=== PATIENT | female | born 1955 | race Caucasian/White ===

== ENCOUNTER → 2019-09-27 15:59 | Outpatient (CLI) | payer OTHER, SELFPAY ==
--- NOTE | 2019-09-27 16:01 | DI.RAD.S_ITS ---
PROCEDURE: XR CHEST 2V INDICATIONS: pneumonia TECHNIQUE: 2 views of the chest were acquired. COMPARISON: [facility], , CHEST 1 VIEW, 11/30/2017, 17:49. FINDINGS: Surgical changes and devices: Surgical clips in stomach. Lungs and pleura: Lungs are clear. No pleural effusions or pneumothorax. Mediastinum: Mediastinal contours are normal. Heart size is normal. Bones and chest wall: No suspicious bony abnormalities. Soft tissues appear unremarkable. IMPRESSION: No acute cardiopulmonary disease. Dictated by: Gabriella Kruger M.D. on 09/27/2019 at 17:50 Approved by: Gabriella Kruger M.D. on 09/27/2019 at 17:50
== END ==
PROVIDERS: Visit Provider Physician Assistant
DX: R05 Cough (principal)
CPT/HCPCS: 71046

== ENCOUNTER 2020-10-22 21:20 | Emergency (ER) | payer OTHER, SELFPAY ==
--- NOTE | 2020-10-22 21:22 | DI.RAD.S_ITS ---
PROCEDURE: XR CHEST 1V INDICATIONS: chest pain TECHNIQUE: One view of the chest was acquired. COMPARISON: [facility], CR, XR CHEST 2V, 09/27/2019, 15:57. FINDINGS: Surgical changes and devices: Multiple surgical clips are redemonstrated in the region of the gastroesophageal junction. Lungs and pleura: There is a linear opacity in the left lung base peripherally likely representing atelectasis. Lungs are otherwise clear. No pleural effusions or pneumothorax. Mediastinum: Mediastinal contours appear normal. Heart size is normal. Bones and chest wall: No suspicious bony lesions. Overlying soft tissues appear unremarkable. IMPRESSION: 1. Probable atelectasis in the left lung base. No definite acute cardiopulmonary disease. Dictated by: Jovany Kumar M.D. on 10/22/2020 at 22:03 Approved by: Jovany Kumar M.D. on 10/22/2020 at 22:06
[2020-10-22 21:25] VITALS: BP 98/51; PULSE 55; RESP 16; TEMP 36.4; O2SAT 99; BMI 26.2
[2020-10-22 22:00] LABS: COVID19 -Nasal RAPID Negative (Negative)
--- NOTE | 2020-10-22 22:02 | ED_ITS ---
HPI - General Adult General Chief complaint: Syncope Stated complaint: syncope Time Seen by Provider: 10/22/20 22:02 Source: patient Mode of arrival: EMS Limitations: no limitations History of Present Illness HPI narrative: 65-year-old female here for evaluation of a syncopal episode. Patient states that she was at her normal state health. Was lying on her bed talking to in individual. States she stood up to go to the restroom and became very lightheaded. She states that she was able to make it to the bathroom and while she was there became even more lightheaded. Had to call her son who came to help her back into the room. Her son states that she did pass out. EMS was called. There was reported episodes of hypotension. Patient states that she had an episode like this happen in the past. It occurred in the same situation where she was lying down and stood up. Had the same symptoms with lighthea dedness. At that episode she ended up fracturing her ankle. She states that she was seen in the emergency department and discharged home and reported that she felt much better after approximately 24 hours. She has not followed up with her primary doctor regarding these. She is on multiple medications for various issues and her son states that she has even started some new medications although he is unsure what exactly they were. Prior to the episode today she denied any chest pain or shortness of breath or palpitations. No headache. No ringing in her ears. There were no injuries from this event. Related Data Home Medications Medication Instructions Recorded Confirmed VITAMIN D (Vitamin D3) 1,000 u PO QDAY #0 11/30/17 09/03/20 amlodipine [Norvasc] 5 mg PO QDAY #0 11/30/17 09/03/20 aspirin 81 mg PO QDAY #0 11/30/17 09/03/20 atorvastatin [Lipitor] 40 mg PO QPM #0 11/30/17 09/03/20 cyanocobalamin (vitamin B-12) 1,000 mcg IM QWEEKWE #0 11/30/17 09/03/20 cyclobenzaprine 10 mg PO HS #0 11/30/17 09/03/20 doxycycline hyclate 100 mg PO QDAY #0 11/30/17 09/03/20 fexofenadine 180 mg PO QDAY #0 11/30/17 09/03/20 gabapentin [Neurontin] 600 mg PO QPM #0 11/30/17 09/03/20 losartan 50 mg PO BID #0 11/30/17 09/03/20 melatonin 3 mg PO HS #0 11/30/17 09/03/20 pantoprazole [Protonix] 40 mg PO QDAY #0 11/30/17 09/03/20 venlafaxine 150 mg PO QDAY #0 11/30/17 09/03/20 venlafaxine [Effexor XR] 75 mg PO QDAY #0 11/30/17 09/03/20 Previous Rx's Medication Instructions Recorded nitroglycerin [Nitrostat] 0.4 mg SUBLINGUAL SEE INSTRUCTIONS 12/02/17 PRN #25 tab albuterol sulfate 90 mcg/actuation 2 puff INHALATION Q4-6H PRN #8.5 09/27/19 aerosol inhaler gram azithromycin 250 mg tablet See Rx Instructions PO .COMPLEX #6 09/27/19 tab benzonatate 100 mg capsule 100 mg PO BID PRN #14 cap 09/27/19 prednisone 20 mg tablet 20 mg PO DAILY #5 tab 09/27/19 potassium chloride 40 meq PO DAILY #2 tab 10/23/20 Allergies Allergy/AdvReac Type Severity Reaction Status Date / Time codeine [CODEINE] Allergy Intermediate CHEST PAIN Verified 09/03/20 14:22 lisinopril [From ZESTRIL] AdvReac Unknown COUGH Verified 09/03/20 14:22 Review of Systems Constitutional Constitutional: Denies fever(s) and Denies headache(s) Eyes Eyes: Denies blurry vision ENT Ears, Nose, Mouth, and Throat: Denies vertigo, Reports dizziness, Denies headache(s) and Reports disequilibrium Cardiovascular Cardiovascular: Denies chest pain and Denies dyspnea Respiratory Respiratory: Denies dyspnea Gastrointestinal Gastrointestinal: Denies abdominal pain, Reports nausea and Denies vomiting Genitourinary Genitourinary: Denies dysuria Genitourinary: Denies dysuria and Denies vaginal discharge Musculoskeletal Musculoskeletal: Denies arthralgias, Denies myalgias and Reports tingling Integumentary/Breasts Skin/Breast: Denies lesions and Denies rash Neurologic Neurologic: Denies vertigo, Reports dizziness, Denies headache(s), Denies convulsions, Reports tingling and Reports disequilibrium Hematologic/Lymphatic Hematologic/Lymphatic: Denies easy bleeding and Denies easy bruising Allergic/Immunologic Allergic/Immunologic: Denies urticaria Patient History Medical History Hypertension Low back pain PTSD (post-traumatic stress disorder) Social History Smoking Status: Never smoker Smoking Status: Never smoker Exam Initial Vital Signs Initial Vital Signs: Vital Signs Temperature 97.6 F 10/22/20 21:25 Pulse Rate 55 L 10/22/20 21:25 Respiratory Rate 16 10/22/20 21:25 Blood Pressure 98/51 L 10/22/20 21:25 Pulse Oximetry 99 10/22/20 21:25 Const General: cooperative, comfortable and well developed Limitations: mental status not altered HENMT Head: normal to inspection and normocephalic Resp Effort & Inspection: normal respiratory effort Auscultation: clear to auscultation bilaterally Cardio Rate: bradycardic Rhythm: regular rhythm GI Inspection: non-distended Palpation: soft Skin Lesions: no lesions Rashes: no rashes Neuro General: patient alert and patient awake Cognition: normal cognition Speech: speech normal Sensory Exam: no sensory deficits noted Extrem General: normal to inspection and capillary refill normal Psych Appearance: grossly normal and well kempt Scores GCS Guttenberg coma scale eye opening: Spontaneous Mohan coma scale verbal response: Orientated Mohan coma scale motor response: Obey commands Mohan coma scale total score: 15 Course Orders Ordered: ED Orders 10/22/20 21:44 COVID19 Stat 10/22/20 22:07 Complete Blood Count AUTO DIFF Stat Comprehensive Metabolic Panel Stat Lipase Stat Magnesium Stat Partial Thromboplastin Time Stat Prothrombin Time INR Stat Troponin & CK Cardiac Panel Stat Discontinued Medications Potassium Chloride 40 meq/ (Sodium Chloride) 520 mls @ 130 mls/hr IV NOW ONE Stop: 10/23/20 02:45 Last Infusion: 10/23/20 02:18 Dose: 0 mls/hr Documented by: ASHLI Cosigned by: JANE Infusion: 10/23/20 01:48 Dose: 100 mls/hr Documented by: ASHLI Cosigned by: AMBER Admin: 10/23/20 00:02 Dose: 130 mls/hr Documented by: MISTY Cosigned by: ERICA Sodium Chloride (Normal Saline 0.9%) 1,000 mls @ 1,000 mls/hr IV BOLUS ONE Stop: 10/23/20 00:58 Last Infusion: 10/23/20 01:20 Dose: 0 mls/hr Documented by: Admin: 10/23/20 00:03 Dose: 1,000 mls/hr Documented by: MISTY Potassium Chloride (Potassium Chloride 20 Meq/15 Ml Udc) 40 meq PO NOW ONE Stop: 10/22/20 22:47 Last Admin: 10/22/20 23:02 Dose: 40 meq Documented by: MISTY Vital Signs Vital signs: Vital Signs - 8 hr 10/22/20 23:08 10/22/20 23:15 10/22/20 23:30 Pulse Rate 60 63 63 Respiratory Rate 15 16 14 Blood Pressure 96/55 L 91/49 L Pulse Oximetry 97 98 96 10/22/20 23:45 10/23/20 00:00 10/23/20 00:11 Pulse Rate 63 61 62 Respiratory Rate 14 12 24 Blood Pressure Pulse Oximetry 93 93 100 10/23/20 00:12 10/23/20 00:15 10/23/20 00:30 Pulse Rate 63 63 63 Respiratory Rate 15 23 15 Blood Pressure 118/58 L 111/54 L 119/57 L Pulse Oximetry 99 98 100 10/23/20 00:45 10/23/20 01:00 10/23/20 01:15 Pulse Rate 62 63 64 Respiratory Rate 19 15 19 Blood Pressure 114/56 L 113/66 112/64 Pulse Oximetry 99 97 99 10/23/20 01:34 10/23/20 01:45 10/23/20 02:00 Pulse Rate 84 67 69 Respiratory Rate 31 H 15 13 Blood Pressure 114/57 L 89/51 L Pulse Oximetry 74 L 98 93 10/23/20 02:15 10/23/20 02:30 Pulse Rate 68 67 Respiratory Rate 17 15 Blood Pressure 108/53 L 101/50 L Pulse Oximetry 96 99 Medical Decision Making Lab Data Lab results reviewed: Yes I reviewed the patient's lab results. Result diagrams: 10/22/20 22:07 10/22/20 22:07 Labs: Lab Results 10/22/20 10/22/20 10/22/20 Range/Units 21:44 22:07 22:07 WBC 5.8 (4.5-11.0) X10^3/uL RBC 4.25 (4.0-5.2) X10^6/uL Hgb 10.4 L (12.0-16.0) g/dL Hct 32.9 L (36-46) % MCV 77.4 L (80-100) fL MCH 24.6 L (26-34) PG MCHC 31.8 (30-36) % RDW 15.5 H (11.6-14.8) % Plt Count 170 (150-400) X10^3/uL Neut % (Auto) 63.6 (50-75) % Lymph % (Auto) 24.7 L (25-40) % [place] % (Auto) 7.4 (3-14) % Eos % (Auto) 3.3 (2-4) % Baso % (Auto) 1.0 (0-2) % Neut # (Auto) 3700 (9880-1550) /uL Lymph # (Auto) 1400 (1528-3209) /uL [place] # (Auto) 400 (0-900) /uL Eos # (Auto) 200 (0-450) /uL Baso # (Auto) 100 (0-100) /uL PT 11.5 (10.1-12.7) SECONDS INR 1.0 (0.9-1.3) APTT 27 (26.4-36.2) SECONDS Sodium (137-145) mmol/L Potassium (3.4-5.1) mmol/L Chloride (98-107) mmol/L Carbon Dioxide (22-32) mmol/L BUN (7-17) mg/dL Creatinine (0.52-1.04) mg/dL Estimated GFR (>60) mL/min BUN/Creatinine Ratio (6-22) Glucose (80-110) mg/dL Calcium (8.4-10.2) mg/dL Magnesium (1.6-2.3) mg/dL Total Bilirubin (0.2-1.3) mg/dL AST (14-36) IU/L ALT (<35) IU/L Alkaline Phosphatase (38-126) U/L Total Creatine Kinase (30-135) U/L CK-MB (CK-2) CK-MB (CK-2) Rel Index Troponin I (0.01-0.034) ng/mL Total Protein (6.3-8.2) g/dL Albumin (3.5-5.0) g/dL Globulin (1.7-4.1) g/dL Albumin/Globulin Ratio (1.0-2.8) Lipase (23-300) U/L SARS-CoV-2 (PCR) Negative (Negative) 10/22/20 Range/Units 22:07 WBC (4.5-11.0) X10^3/uL RBC (4.0-5.2) X10^6/uL Hgb (12.0-16.0) g/dL Hct (36-46) % MCV (80-100) fL MCH (26-34) PG MCHC (30-36) % RDW (11.6-14.8) % Plt Count (150-400) X10^3/uL Neut % (Auto) (50-75) % Lymph % (Auto) (25-40) % [place] % (Auto) (3-14) % Eos % (Auto) (2-4) % Baso % (Auto) (0-2) % Neut # (Auto) (0914-1082) /uL Lymph # (Auto) (1812-0989) /uL [place] # (Auto) (0-900) /uL Eos # (Auto) (0-450) /uL Baso # (Auto) (0-100) /uL PT (10.1-12.7) SECONDS INR (0.9-1.3) APTT (26.4-36.2) SECONDS Sodium 136 L (137-145) mmol/L Potassium 2.7 L* (3.4-5.1) mmol/L Chloride 106 (98-107) mmol/L Carbon Dioxide 26 (22-32) mmol/L BUN 18 H (7-17) mg/dL Creatinine 1.05 H (0.52-1.04) mg/dL Estimated GFR 52.8 L (>60) mL/min BUN/Creatinine Ratio 17.1 (6-22) Glucose 114 H (80-110) mg/dL Calcium 8.3 L (8.4-10.2) mg/dL Magnesium 2.0 (1.6-2.3) mg/dL Total Bilirubin 0.4 (0.2-1.3) mg/dL AST 30 (14-36) IU/L ALT 16 (<35) IU/L Alkaline Phosphatase 82 (38-126) U/L Total Creatine Kinase 39 (30-135) U/L CK-MB (CK-2) TNP CK-MB (CK-2) Rel Index TNP Troponin I < 0.012 (0.01-0.034) ng/mL Total Protein 6.1 L (6.3-8.2) g/dL Albumin 3.4 L (3.5-5.0) g/dL Globulin 2.7 (1.7-4.1) g/dL Albumin/Globulin Ratio 1.3 (1.0-2.8) Lipase 140 (23-300) U/L SARS-CoV-2 (PCR) (Negative) ECG Data Attestation: I personally reviewed and interpreted this ECG as follows: Prior ECG tracings: not available for review Interpretation: Sinus bradycardia Ventricular rate of 56 Normal QRS Normal axis QTC [address] T wave changes MDM Narrative Medical decision making narrative: Patient not orthostatic although her blood pressure is somewhat borderline low. She is hypokalemic. This was replaced here in the emergency department. She was having some problems tolerating the IV potassium that was ordered so it was stopped after approximately half of the 40 mg infusion. She was given a prescription to take more potassium tomorrow. It appeared that she did have a syncopal episode however it did not appear to be seizure-like activity. Low suspicion for CVA. Low suspicion for TIA. Did occur after she stood up from lying down. Could very well be vasovagal. Blood sugars unremarkable. Electrolytes with a potassium are unremarkable. I have a high suspicion that her symptoms are medication related. She is on multiple medications that are sedating to include hydroxyzine, Flexeril, tramadol, gabapentin, and others. She did state that the episode today occurred a short time after taking these medications as well. Plan will be is for her to stop some of the sedating medications such as the Flexeril in the tramadol. I feel patient could be safely discharged from the hospital. She is feeling much better. She ambulated to the bathroom. She is going to contact her primary doctor regarding the rest of her medications. She was given strict return prec autions. She expressed understanding and agreement. Discharge Plan Departure Patient Disposition: Home Clinical Impression: Syncope, Hypokalemia Instructions: DI for Syncope in Adults (Fainting), DI for Hypokalemia Activity Restrictions/Additional Instructions: Your workup in the emergency department was reassuring. Unfortunately I do not have an exact cause of your fainting spells however I have a high suspicion that it is related to your medications. I recommend that you make some changes to your medicine. Recommend that you stop the amlodipine. Continue to take the losartan 2 times a day as you are already doing. Be sure to check your blood pressures at home while we make these changes. I also recommend that you stop the cyclobenzaprine and tramadol. Contact your primary provider for follow-up. Return to the emergency department for any new or worsening symptoms Prescriptions: New potassium chloride 20 mEq tablet extended release 40 meq PO DAILY Qty: 2 RF: 0 No Action azithromycin 250 mg tablet See Rx Instructions PO .COMPLEX Qty: 6 RF: 0 prednisone 20 mg tablet 20 mg PO DAILY Qty: 5 RF: 0 albuterol sulfate 90 mcg/actuation HFA aerosol inhaler 2 puff INHALATION Q4-6H PRN (Reason: bronchospasm) Qty: 8.5 RF: 0 benzonatate [Tessalon Perles] 100 mg capsule 100 mg PO BID PRN (Reason: cough) Qty: 14 RF: 0 venlafaxine [Effexor XR] 75 MG capsule,extended release 24hr 75 mg PO QDAY Qty: 0 RF: 0 venlafaxine 150 MG capsule,extended release 24hr 150 mg PO QDAY Qty: 0 RF: 0 doxycycline hyclate 100 MG capsule 100 mg PO QDAY Qty: 0 RF: 0 cyanocobalamin (vitamin B-12) Vitamin B-12 solution 1,000 mcg IM QWEEKWE Qty: 0 RF: 0 VITAMIN D (Vitamin D3) 1,000 u PO QDAY Qty: 0 RF: 0 losartan 50 MG tablet 50 mg PO BID Qty: 0 RF: 0 cyclobenzaprine 10 MG tablet 10 mg PO HS Qty: 0 RF: 0 fexofenadine 180 MG tablet 180 mg PO QDAY Qty: 0 RF: 0 pantoprazole [Protonix] [address] for susp in packet 40 mg PO QDAY Qty: 0 RF: 0 atorvastatin [Lipitor] 40 MG tablet 40 mg PO QPM Qty: 0 RF: 0 amlodipine [Norvasc] 5 MG tablet 5 mg PO QDAY Qty: 0 RF: 0 aspirin 81 MG tablet,delayed release (DR/EC) 81 mg PO QDAY Qty: 0 RF: 0 gabapentin [Neurontin] 300 MG capsule 600 mg PO QPM Qty: 0 RF: 0 melatonin 3 MG tablet 3 mg PO HS Qty: 0 RF: 0 nitroglycerin [Nitrostat] 0.4 MG tablet, sublingual 0.4 mg Sublingual SEE INSTRUCTIONS PRNQty: 25 RF: 0 Referrals: Meghan Iqbal MD [Primary Care Provider] -
[2020-10-22 22:19] LABS: Add Manual Diff / Slide Review NO; Basophils Absolute Auto 100 /uL (0-100); Eosinophils Absolute Auto 200 /uL (0-450); Eosinophils Percent Auto 3.3 % (2-4); Hematocrit 32.9 % (36-46); Hemoglobin 10.4 g/dL (12.0-16.0); Lymphocytes Absolute Auto 1400 /uL (1100-4500); Lymphocytes Percent Auto 24.7 % (25-40); Mean Corpuscular HGB Conc 31.8 % (30-36); Mean Corpuscular Hemoglobin 24.6 PG (26-34); Mean Corpuscular Volume 77.4 fL (80-100); Monocytes Absolute Auto 400 /uL (0-900); Monocytes Percent Auto 7.4 % (3-14); Neutrophils Absolute Auto 3700 /uL (1500-7000); Neutrophils Percent Auto 63.6 % (50-75); Platelet Count 170 X10^3/uL (150-400); Red Blood Cell Count 4.25 X10^6/uL (4.0-5.2); Red Cell Distribution Width 15.5 % (11.6-14.8); White Blood Cell Count 5.8 X10^3/uL (4.5-11.0)
[2020-10-22 22:20] LABS: Prothrombin Time 11.5 SECONDS (10.1-12.7)
[2020-10-22 22:23] LABS: PTT Partial Thromboplastin Tim 27 SECONDS (26.4-36.2)
[2020-10-22 22:27] LABS: Alanine Aminotransferase 16 IU/L (<35); Albumin 3.4 g/dL (3.5-5.0); Albumin Globulin Ratio 1.3 (1.0-2.8); Alkaline Phosphatase 82 U/L (38-126); Aspartate Aminotransferase 30 IU/L (14-36); BUN Creatinine Ratio 17.1 (6-22); Bilirubin Total 0.4 mg/dL (0.2-1.3); Blood Urea Nitrogen 18 mg/dL (7-17); Calcium 8.3 mg/dL (8.4-10.2); Carbon Dioxide 26 mmol/L (22-32); Chloride 106 mmol/L (98-107); Creatine Kinase 39 U/L (30-135); Estimated Glomerular Filt Rate 52.8 mL/min (>60); Globulin 2.7 g/dL (1.7-4.1); Glucose 114 mg/dL (80-110); HEMOLYSIS < 15 (0-50); Lipase 140 U/L (23-300); Sodium 136 mmol/L (137-145); Total Protein 6.1 g/dL (6.3-8.2)
[2020-10-22 22:31] LABS: Potassium 2.7 mmol/L (3.4-5.1)
[2020-10-22 22:37] VITALS: BP 108/53; BP 112/59; BP 97/54; PULSE 56; PULSE 58; PULSE 59
[2020-10-22 22:38] LABS: Troponin I < 0.012 ng/mL (0.01-0.034)
[2020-10-22] MEDS: POTASSIUM CHLORIDE 20 MEQ/15 ML UDC 40 MEQ PO (23:02)
[2020-10-22 23:08] VITALS: BP 96/55; PULSE 60; RESP 15; O2SAT 97
[2020-10-22 23:15] VITALS: BP 91/49; PULSE 63; RESP 16; O2SAT 98
[2020-10-22 23:30] VITALS: PULSE 63; RESP 14; O2SAT 96
[2020-10-22 23:45] VITALS: PULSE 63; RESP 14; O2SAT 93
[2020-10-23] VITALS (13 sets, daily range): BP systolic 89–119; BP diastolic 50–66; PULSE 61–84; RESP 12–31; O2SAT 74–100
[2020-10-23] MEDS: POTASSIUM CHLORIDE 40 MEQ in SODIUM CHLORIDE 0.9% 500 ML 130 ML IV (00:02)
[2020-10-23] MEDS: SODIUM CHLORIDE 0.9% 1,000 ML 1000 ML IV (00:03)
== END 2020-10-23 02:47 | disposition home or self-care (01) ==
PROVIDERS: Emergency Provider Emergency Medicine
DX: R55 Syncope and collapse (principal); E87.6 Hypokalemia; R00.1 Bradycardia, unspecified; R42 Dizziness and giddiness; I10 Essential (primary) hypertension; F43.10 Post-traumatic stress disorder, unspecified
CPT/HCPCS: 36415; 71045; 80053; 82550; 83690; 83735; 84484; 85025; 85610; 85730; 87635; 93005; 96361; 96365; 96366; 99284; C9803; J3480

== ENCOUNTER → 2020-11-06 14:38 | Outpatient (CLI) | payer OTHER, SELFPAY ==
--- NOTE | 2020-11-06 14:40 | DI.RAD.S_ITS ---
PROCEDURE: XR LUMBAR SPINE 2-3V INDICATIONS: low back pain, r/o bony abnormality TECHNIQUE: 3 views of the lumbar spine were acquired. COMPARISON: None. FINDINGS: Bones: 5 [id number] vertebrae are present. There is normal bony alignment. No vertebral body compression fractures. No suspicious bony lesions. Soft tissues: Overlying bowel gas pattern is normal. No suspicious soft tissue calcifications. IMPRESSION: The degenerative disc disease along the lumbosacral spine is mild except at L5-S1 where it is moderate. Facet osteoarthritis becomes progressively more prominent from L3 through S1 and is moderately severe to severe at L5-S1. No trauma Dictated by: Kevin Wong M.D. on 11/06/2020 at 15:19 Approved by: Kevin Wong M.D. on 11/06/2020 at 15:22
== END ==
PROVIDERS: Referring Provider Physician Assistant; Visit Provider Physician Assistant
DX: M54.5 Low back pain (principal); M51.36 Other intervertebral disc degeneration, lumbar region; M51.37 Other intervertebral disc degeneration, lumbosacral region; M47.816 Spondylosis without myelopathy or radiculopathy, lumbar region; M47.817 Spondylosis without myelopathy or radiculopathy, lumbosacral region
CPT/HCPCS: 72100

== ENCOUNTER 2021-04-06 09:30 | Observation (INO) | payer MEDICARE, OTHER, SELFPAY ==
[2021-04-06] VITALS (14 sets, daily range): BP systolic 137–167; BP diastolic 68–76; PULSE 57–90; RESP 15–24; TEMP 36.6–36.9; O2SAT 93–100; BMI 28.4
--- NOTE | 2021-04-06 09:45 | ED.GENADULT ---
HPI - General Adult General Chief complaint: Syncope Stated complaint: Syncopal Time Seen by Provider: 04/06/21 09:30 History of Present Illness HPI narrative: 66-year-old woman with a history of hypertension, hyperlipidemia, recurrent episodes of near-syncope, diet-controlled diabetes, history of gastric bypass and a history of pancreatitis presents with a near syncopal episode again this morning. She reports having multiple near-syncope episodes over the last year typically associated with wave of dizziness and then with maintained awareness ending up on the floor. These episodes are not associated with pain, diaphoresis, dyspnea, tinnitus, headache or any vision changes. They are not necessarily positional but she has been found to be hypotensive with in medical evaluation occurs nina syncopal episode. With each of these episodes she does not describe any seizure-like activity, urinary incontinence or postictal phase. An episode a year ago was dramatic enough that she actually sustained an ankle fracture. She has had multiple episodes this week and 3 days ago was seen at [facility] Emergency Department for evaluation of the same. She had EKGs and blood work done, was told that she was slightly dehydrated and discharged home. When medics arrived today they found her to be hypotensive with a systolic blood pressure of 86 she was given 4 mg of Zofran and 500 cc of fluid and is feeling better. She states that she has not had any significant workup for this in at least the last year. She does not believe she has had an echocardiogram she has had no brain imaging, she has had cardiac stress test a number of years ago that apparently went well as she was not followed up with a heart catheterization. She notes that she has a fairly dramatic family history for early coronary disease with multiple male members dying of heart attacks after multiple heart attacks, open heart surgery and stents while in their 30s. She denies alcohol use, recreational drug use or change to prescription medications recently. Related Data Home Medications Medication Instructions Recorded Confirmed VITAMIN D (Vitamin D3) 1,000 u PO QDAY #0 11/30/17 09/03/20 amlodipine [Norvasc] 5 mg PO QDAY #0 11/30/17 09/03/20 aspirin 81 mg PO QDAY #0 11/30/17 09/03/20 atorvastatin [Lipitor] 40 mg PO QPM #0 11/30/17 09/03/20 cyanocobalamin (vitamin B-12) 1,000 mcg IM QWEEKWE #0 11/30/17 09/03/20 cyclobenzaprine 10 mg PO HS #0 11/30/17 09/03/20 doxycycline hyclate 100 mg PO QDAY #0 11/30/17 09/03/20 fexofenadine 180 mg PO QDAY #0 11/30/17 09/03/20 gabapentin [Neurontin] 600 mg PO QPM #0 11/30/17 09/03/20 losartan 50 mg PO BID #0 11/30/17 09/03/20 melatonin 3 mg PO HS #0 11/30/17 09/03/20 pantoprazole [Protonix] 40 mg PO QDAY #0 11/30/17 09/03/20 venlafaxine 150 mg PO QDAY #0 11/30/17 09/03/20 venlafaxine [Effexor XR] 75 mg PO QDAY #0 11/30/17 09/03/20 Previous Rx's Medication Instructions Recorded nitroglycerin [Nitrostat] 0.4 mg SUBLINGUAL SEE INSTRUCTIONS 12/02/17 PRN #25 tab albuterol sulfate 90 mcg/actuation 2 puff INHALATION Q4-6H PRN #8.5 09/27/19 aerosol inhaler gram azithromycin 250 mg tablet See Rx Instructions PO .COMPLEX #6 09/27/19 tab benzonatate 100 mg capsule 100 mg PO BID PRN #14 cap 09/27/19 prednisone 20 mg tablet 20 mg PO DAILY #5 tab 09/27/19 potassium chloride 40 meq PO DAILY #2 tab 10/23/20 Allergies Allergy/AdvReac Type Severity Reaction Status Date / Time codeine [CODEINE] Allergy Intermediate CHEST PAIN Verified 04/06/21 09:52 lisinopril [From ZESTRIL] AdvReac Unknown COUGH Verified 04/06/21 09:52 Review of Systems Review of Systems Narrative: Pertinent positive and negative findings as per HPI Remainder of review of systems is otherwise unremarkable for Constitutional: Fevers, chills, weakness ENT: No sore throat, neck pain, ear pain CV: Chest pain, palpitations, dyspnea on exertion Respiratory: Cough, wheeze, dyspnea GI: Nausea, vomiting, diarrhea, change in bowel habits, black or bloody stools : Dysuria, hematuria, flank pain MS: Muscle weakness, numbness, joint swelling or warmth Skin: Rashes, nonhealing lesions Endocrine: Fatigue, heat or cold intolerance, very dry skin, or significant changes to weight Patient History Medical History (Updated 04/06/21 @ 09:55 by Merlene Young MD) Diet-controlled diabetes mellitus Hyperlipidemia Hypertension Low back pain PTSD (post-traumatic stress disorder) Recurrent syncope Family History (Updated 04/06/21 @ 09:48 by Merlene Young MD) Brother FH: heart attack Brother FH: heart attack Father FH: heart attack Mother FH: heart attack Brother FH: heart attack Daughter FH: heart attack Grandfather FH: heart attack Social History Smoking Status: Never smoker Smoking Status: Never smoker Exam Narrative Exam Narrative: General: Healthy appearing, in no acute distress. Able to give a complete and coherent history. Well-nourished well-developed HEENT: Moist mucous membranes, normal sclera with reactive pupils, Neck: No JVD, supple Respiratory: Lungs are clear to auscultation, no wheezing no rales no rhonchi. Full and symmetrical air movement Cardiac: Regular rate and rhythm no murmurs no bruits Abdomen: Soft, nontender, good bowel tones, no flank pain Skin: Warm and dry, no rashes Neurologic: Grossly neurologically intact with no obvious asymmetries or abnormalities Extremities: No trauma, well perfused Psych: Cooperative, appropriate insight and affect Discharge Plan Departure Prescriptions: No Action azithromycin 250 mg tablet See Rx Instructions PO .COMPLEX Qty: 6 RF: 0 prednisone 20 mg tablet 20 mg PO DAILY Qty: 5 RF: 0 albuterol sulfate 90 mcg/actuation HFA aerosol inhaler 2 puff INHALATION Q4-6H PRN (Reason: bronchospasm) Qty: 8.5 RF: 0 benzonatate [Tessalon Perles] 100 mg capsule 100 mg PO BID PRN (Reason: cough) Qty: 14 RF: 0 venlafaxine [Effexor XR] 75 MG capsule,extended release 24hr 75 mg PO QDAY Qty: 0 RF: 0 venlafaxine 150 MG capsule,extended release 24hr 150 mg PO QDAY Qty: 0 RF: 0 doxycycline hyclate 100 MG capsule 100 mg PO QDAY Qty: 0 RF: 0 cyanocobalamin (vitamin B-12) Vitamin B-12 solution 1,000 mcg IM QWEEKWE Qty: 0 RF: 0 VITAMIN D (Vitamin D3) 1,000 u PO QDAY Qty: 0 RF: 0 losartan 50 MG tablet 50 mg PO BID Qty: 0 RF: 0 cyclobenzaprine 10 MG tablet 10 mg PO HS Qty: 0 RF: 0 fexofenadine 180 MG tablet 180 mg PO QDAY Qty: 0 RF: 0 pantoprazole [Protonix] [address] for susp in packet 40 mg PO QDAY Qty: 0 RF: 0 atorvastatin [Lipitor] 40 MG tablet 40 mg PO QPM Qty: 0 RF: 0 amlodipine [Norvasc] 5 MG tablet 5 mg PO QDAY Qty: 0 RF: 0 aspirin 81 MG tablet,delayed release (DR/EC) 81 mg PO QDAY Qty: 0 RF: 0 gabapentin [Neurontin] 300 MG capsule 600 mg PO QPM Qty: 0 RF: 0 melatonin 3 MG tablet 3 mg PO HS Qty: 0 RF: 0 nitroglycerin [Nitrostat] 0.4 MG tablet, sublingual 0.4 mg Sublingual SEE INSTRUCTIONS PRNQty: 25 RF: 0 potassium chloride 20 mEq tablet extended release 40 meq PO DAILY Qty: 2 RF: 0
--- NOTE | 2021-04-06 09:57 | DI.CT.S_ITS ---
PROCEDURE: CT HEAD/BRAIN WO CON INDICATIONS: recurrent syncope TECHNIQUE: Noncontrast 4.5 mm thick angled axial sections acquired from the foramen magnum to the vertex, with coronal and sagittal reformats. For radiation dose reduction, the following was used: automated exposure control, adjustment of mA and/or kV according to patient size. COMPARISON: None. FINDINGS: Image quality: Excellent. CSF spaces: Basal cisterns are patent. No extra-axial fluid collections. The ventricles are symmetric in size and shape. Brain: No intracranial bleeds or masses. There is cerebral volume loss for age, with resultant ventricular and sulcal prominence. There are periventricular and deep white matter chronic small vessel ischemic changes. There is intracranial internal carotid artery atherosclerosis. Skull and face: Calvarium and visualized facial bones appear intact, without suspicious lesions. Sinuses: Visualized sinuses and mastoids are clear. IMPRESSION: No evidence acute stroke, hemorrhage, or mass. Dictated by: Sy Varela M.D. on 04/06/2021 at 9:20 Approved by: Sy Varela M.D. on 04/06/2021 at 9:20
--- NOTE | 2021-04-06 09:57 | DI.RAD.S_ITS ---
PROCEDURE: XR CHEST 1V INDICATIONS: syncope TECHNIQUE: One view of the chest was acquired. COMPARISON: [facility], CR, XR CHEST 1V, 10/22/2020, 21:27. FINDINGS: Surgical changes and devices: None. Lungs and pleura: Lungs are clear. No pleural effusions or pneumothorax. Mediastinum: Mediastinal contours appear normal. Heart size is normal. Bones and chest wall: No suspicious bony lesions. Overlying soft tissues appear unremarkable. IMPRESSION: No evidence acute pulmonary process. Dictated by: Sy Varela M.D. on 04/06/2021 at 9:17 Approved by: Sy Varela M.D. on 04/06/2021 at 9:19
[2021-04-06 10:08] LABS: Add Manual Diff / Slide Review NO; Basophils Absolute Auto 100 /uL (0-100); Basophils Percent Auto 1.4 % (0-2); Eosinophils Absolute Auto 200 /uL (0-450); Eosinophils Percent Auto 3.9 % (2-4); Hemoglobin 10.2 g/dL (12.0-16.0); Lymphocytes Absolute Auto 1400 /uL (1100-4500); Lymphocytes Percent Auto 30.2 % (25-40); Mean Corpuscular HGB Conc 31.8 % (30-36); Mean Corpuscular Hemoglobin 24.3 PG (26-34); Mean Corpuscular Volume 76.6 fL (80-100); Monocytes Absolute Auto 400 /uL (0-900); Monocytes Percent Auto 9.4 % (3-14); Neutrophils Absolute Auto 2500 /uL (1500-7000); Neutrophils Percent Auto 55.1 % (50-75); Platelet Count 209 X10^3/uL (150-400); Red Blood Cell Count 4.18 X10^6/uL (4.0-5.2); Red Cell Distribution Width 16.3 % (11.6-14.8); White Blood Cell Count 4.5 X10^3/uL (4.5-11.0)
[2021-04-06] MEDS: SODIUM CHLORIDE 0.9% 1,000 ML 150 ML IV (10:10)
[2021-04-06 11:11] LABS: D Dimer 258 ng/mL (<230)
[2021-04-06 11:14] LABS: Alanine Aminotransferase 18 IU/L (<35); Albumin 3.4 g/dL (3.5-5.0); Albumin Globulin Ratio 1.2 (1.0-2.8); Alkaline Phosphatase 91 U/L (38-126); Aspartate Aminotransferase 33 IU/L (14-36); BUN Creatinine Ratio 19.2 (6-22); Bilirubin Total 0.8 mg/dL (0.2-1.3); Blood Urea Nitrogen 14 mg/dL (7-17); Calcium 8.5 mg/dL (8.4-10.2); Carbon Dioxide 22 mmol/L (22-32); Chloride 111 mmol/L (98-107); Creatine Kinase 59 U/L (30-135); Estimated Glomerular Filt Rate > 60.0 mL/min (>60); Globulin 2.9 g/dL (1.7-4.1); Glucose 119 mg/dL (80-110); HEMOLYSIS < 15 (0-50); Magnesium 1.9 mg/dL (1.6-2.3); Potassium 3.5 mmol/L (3.4-5.1); Sodium 140 mmol/L (137-145); Total Protein 6.3 g/dL (6.3-8.2)
[2021-04-06 11:23] LABS: COVID19 - ADMIT (NP swab/PCR) Negative (Negative)
[2021-04-06 11:25] LABS: NT-proBNP (BNP-Adult 18+) 194 pg/mL (<125); Troponin I < 0.012 ng/mL (0.01-0.034)
--- NOTE | 2021-04-06 13:52 | P.HP_ITS ---
History of Present Illness History of Present Illness Date Patient Seen: 04/06/21 Time Patient Seen: 13:52 Chief complaint: Syncopal Narrative: This is a 66-year-old female with recurrent syncopal symptoms who is admitted for telemetry observation and stabilization. She has a history of hyperlipidemia, hypertension, peripheral neuropathy, gastric bypass surgery and GERD. She has a very strong family history of coronary artery disease in her mother, her father who at age 39, all 4 of her brothers, 2 of whom have already of MIs. She also has a family history in her mother of recurrent syncope, finally stabilized with pacemaker placement at a similar age. She has had episodes of feeling like passing out and actually passing out going back to 2017. On 1 of these episodes she fell and actually fractured her left ankle requiring surgery. She had a negative syncope evaluation with Dr. Thomas zamudio in 2017. This week she has had 2 episodes already, she was seen a few days ago at [facility] without any etiology found and then again today when she was driving to [employer] to go shopping she suddenly felt very tired. She pulled into the parking lot and was barely able to stand up. She eventually got in 1 of the scooter carts, called her son and then was picked up and brought to the hospital by her son or the paramedics. She did not pass out. She felt very nauseated but didn't have any Chest Pain or SOB. She describes that her blood pressure was 100/58 when they arrived, which is considerably lower than she normally is. She says she was told that her heart rate was slow but she does not recall the numbers. Her evaluation here so far has been negative including telemetry monitoring, EKG and brain CT. She was discussed with Cardiology who recommended a 24-48 hour period of observation in the hospital setting and if nothing is found to explain her symptoms then an event monitor placement as an outpatient. Patient History Medical History (Updated 04/06/21 @ 14:05 by Juliano Latif MD) Diet-controlled diabetes mellitus H/O fracture of ankle Hyperlipidemia Hypertension Low back pain PTSD (post-traumatic stress disorder) Recurrent syncope Surgical History (Updated 04/06/21 @ 14:05 by Juliano Latif MD) H/O carpal tunnel repair H/O cornea transplant H/O gastric bypass H/O: hysterectomy History of ankle surgery Family & Social History Family History (Updated 04/06/21 @ 14:06 by Juliano Latif MD) Brother FH: heart attack Brother FH: heart attack Father FH: heart attack Mother FH: heart attack Syncope and collapse Pacemaker Dementia Brother FH: heart attack Daughter FH: heart attack Grandfather FH: heart attack Social History: Her backup decision maker is her son who she lives with. She is a disabled SENIOR CLINICAL RESEARCH ASSOCIATE She uses THC occasionally for sleep and denies alcohol use. Safety & Behavioral: Feels Safe in Current Yes Environment Been Physically Hurt or No Threatened By a Person Tobacco & Substance use: Smoking Status Never smoker alcohol intake frequency 0-2 drinks per day Substance Use Type does not use Meds Home Medications and Allergies Home Medications Medication Instructions Recorded Confirmed Type amlodipine [Norvasc] 5 mg PO QDAY #0 11/30/17 04/06/21 History atorvastatin [Lipitor] 40 mg PO QPM #0 11/30/17 04/06/21 History cyanocobalamin (vitamin B-12) 1,000 mcg IM QWEEKWE #0 11/30/17 04/06/21 History cyclobenzaprine 10 mg PO HS #0 11/30/17 04/06/21 History doxycycline hyclate 100 mg PO QDAY #0 11/30/17 04/06/21 History gabapentin [Neurontin] 300 mg PO BID #0 11/30/17 04/06/21 History losartan 50 mg PO BID #0 11/30/17 04/06/21 History loratadine 10 mg PO DAILY 04/06/21 04/06/21 History sigalcbe-xiwiurj-ztav-lutein 1 tab PO DAILY 04/06/21 04/06/21 History [Centrum Silver Ultra Women's] ondansetron 4 mg PO TID PRN 04/06/21 04/06/21 History rabeprazole 20 mg PO DAILY 04/06/21 04/06/21 History Allergies Allergy/AdvReac Type Severity Reaction Status Date / Time codeine [CODEINE] Allergy Intermediate CHEST PAIN Verified 04/06/21 09:52 lisinopril [From ZESTRIL] AdvReac Unknown COUGH Verified 04/06/21 09:52 Review of Systems Review of Systems Narrative: Positive for nausea and weakness with near syncope Negative for fevers, chills, sweats, vomiting, diarrhea, abdominal pain, chest pain, shortness of breath, palpitations, bleeding, rashes, seizures, difficulty talking, new allergies ROS: Yes All systems reviewed with the patient and are negative except as otherwise documented Exam Vital Signs (past 8 hours): - 04/06/21 09:30 04/06/21 09:47 04/06/21 10:00 Temperature 98.2 F Pulse Rate 57 L 58 L 61 Respiratory Rate 16 15 20 Blood Pressure 137/74 137/74 154/68 H Pulse Oximetry 100 100 100 04/06/21 10:30 04/06/21 11:00 04/06/21 11:30 Temperature Pulse Rate 60 63 61 Respiratory Rate 20 17 16 Blood Pressure 162/72 H 163/70 H 165/74 H Pulse Oximetry 100 100 100 04/06/21 12:00 04/06/21 12:12 04/06/21 12:30 Temperature Pulse Rate 63 70 62 Respiratory Rate 18 22 21 Blood Pressure 159/72 H 167/74 H 152/71 H Pulse Oximetry 100 93 100 04/06/21 12:31 04/06/21 13:00 04/06/21 13:43 Temperature 97.8 F Pulse Rate 61 61 63 Respiratory Rate 18 24 16 Blood Pressure 145/68 H 156/76 H 160/75 H Pulse Oximetry 100 100 100 Oxygen Delivery Method Room Air Narrative Exam Narrative: She is alert and oriented x3. No apparent distress. Extraocular muscles are intact. Sclerae are pink and nonicteric. No lymph nodes are felt head, neck, supraclavicular area Pupils are equally round and reactive to light and accommodation. There is no thyromegaly. No carotid bruits are heard. Heart is regular rate and rhythm without murmur Lungs are clear to auscultation bilaterally Abdomen is soft, obese, bowel sounds positive, nontender, no organomegaly Extremities have no ankle edema Motor function is 5/5 throughout. Deep tender reflexes are normal bilaterally There is no tremor Cranial nerves 2-12 test intact Gait and balance are not tested Skin exam is normal without rash or jaundice. Objective Imaging ECG: My impression: Sinus bradycardia with a heart rate of 58. No abnormal ST or T-wave changes. Labs Result Diagrams: 04/06/21 09:44 04/06/21 09:44 Labs: Laboratory Results - last 24 hr 04/06/21 04/06/21 04/06/21 09:44 09:44 10:15 WBC 4.5 RBC 4.18 Hgb 10.2 L Hct 32.0 L MCV 76.6 L MCH 24.3 L MCHC 31.8 RDW 16.3 H Plt Count 209 Neut % (Auto) 55.1 Lymph % (Auto) 30.2 [place] % (Auto) 9.4 Eos % (Auto) 3.9 Baso % (Auto) 1.4 Neut # (Auto) 2500 Lymph # (Auto) 1400 [place] # (Auto) 400 Eos # (Auto) 200 Baso # (Auto) 100 D-Dimer 258 H Sodium 140 Potassium 3.5 Chloride 111 H Carbon Dioxide 22 BUN 14 Creatinine 0.73 Estimated GFR > 60.0 BUN/Creatinine Ratio 19.2 Glucose 119 H Calcium 8.5 Magnesium 1.9 Total Bilirubin 0.8 AST 33 ALT 18 Alkaline Phosphatase 91 Total Creatine Kinase 59 CK-MB (CK-2) TNP CK-MB (CK-2) Rel Index TNP Troponin I < 0.012 NT-Pro-B Natriuret Pep 194 H Total Protein 6.3 Albumin 3.4 L Globulin 2.9 Albumin/Globulin Ratio 1.2 SARS-CoV-2 (PCR) 04/06/21 10:20 WBC RBC Hgb Hct MCV MCH MCHC RDW Plt Count Neut % (Auto) Lymph % (Auto) [place] % (Auto) Eos % (Auto) Baso % (Auto) Neut # (Auto) Lymph # (Auto) [place] # (Auto) Eos # (Auto) Baso # (Auto) D-Dimer Sodium Potassium Chloride Carbon Dioxide BUN Creatinine Estimated GFR BUN/Creatinine Ratio Glucose Calcium Magnesium Total Bilirubin AST ALT Alkaline Phosphatase Total Creatine Kinase CK-MB (CK-2) CK-MB (CK-2) Rel Index Troponin I NT-Pro-B Natriuret Pep Total Protein Albumin Globulin Albumin/Globulin Ratio SARS-CoV-2 (PCR) Negative Assessment & Plan Assessment & Plan narrative: This is a 66-year-old female with recurrent syncopal symptoms who is admitted for telemetry observation and stabilization. She has a history of hyperlipidemia, hypertension, peripheral neuropathy, gastric bypass surgery and GERD. Syncope, present on admission. Active. -brain CT, EKG, telemetry and laboratory monitoring without any clear etiology -strong family history of coronary disease (4 brothers, father and mother) and also of syncope requiring pacemaker placement (mother) -negative syncope workup from 2017 (including stress echo) -hemoglobin 10.2, stable compared to October but much lower than in 2018. -per discussion with Cardiology will monitor for 48 hours inpatient and if no episodes or etiology are discovered then will recommend event monitor placement as an outpatient. Microcytic anemia, present on admission. Active. -hemoglobin of 10.2 today with MCV of 76. Previous hemoglobin of 13.8 in 2017 and then 10.4 on 11/08. -check iron level, Hemoccult stools and repeat hemoglobin 04/07 -likely to need GI workup as an outpatient Hypertension, present on admission. Active. -continue amlodipine and losartan Hyperlipidemia, present on admission. Chronic. -continue atorvastatin Peripheral neuropathy, present on admission. Active. -continue gabapentin GERD, present on admission. Chronic. -continue Nexium
--- NOTE | 2021-04-06 15:25 | PC.NURSE ---
Patient sitting up in bed, without complaint. tolerated late lunch. Bed alarm active, call light within reach, agrees to call for assistance.
[2021-04-06] MEDS: ATORVASTATIN 20 MG TABLET 40 MG PO (16:50)
[2021-04-06] MEDS: LOSARTAN 50 MG TABLET PO (21:17)
[2021-04-06] MEDS: CYCLOBENZAPRINE 10 MG TABLET PO (21:17)
[2021-04-06] MEDS: GABAPENTIN 300 MG CAPSULE PO (21:17)
[2021-04-07] VITALS (10 sets, daily range): BP systolic 100–155; BP diastolic 60–89; PULSE 55–91; RESP 12–22; TEMP 35.9–37; O2SAT 92–100
[2021-04-07] MEDS: PANTOPRAZOLE DR 40 MG TABLET PO (06:21)
[2021-04-07 06:29] LABS: Add Manual Diff / Slide Review NO; Basophils Absolute Auto 100 /uL (0-100); Basophils Percent Auto 1.2 % (0-2); Eosinophils Absolute Auto 200 /uL (0-450); Eosinophils Percent Auto 4.2 % (2-4); Hematocrit 33.2 % (36-46); Hemoglobin 10.6 g/dL (12.0-16.0); Lymphocytes Absolute Auto 1800 /uL (1100-4500); Lymphocytes Percent Auto 34.4 % (25-40); Mean Corpuscular HGB Conc 31.9 % (30-36); Mean Corpuscular Hemoglobin 24.3 PG (26-34); Mean Corpuscular Volume 76.4 fL (80-100); Monocytes Absolute Auto 500 /uL (0-900); Monocytes Percent Auto 9.5 % (3-14); Neutrophils Absolute Auto 2700 /uL (1500-7000); Neutrophils Percent Auto 50.7 % (50-75); Platelet Count 231 X10^3/uL (150-400); Red Blood Cell Count 4.35 X10^6/uL (4.0-5.2); Red Cell Distribution Width 16.7 % (11.6-14.8); White Blood Cell Count 5.4 X10^3/uL (4.5-11.0)
[2021-04-07 06:32] LABS: Alanine Aminotransferase 17 IU/L (<35); Albumin 3.6 g/dL (3.5-5.0); Albumin Globulin Ratio 1.3 (1.0-2.8); Alkaline Phosphatase 88 U/L (38-126); Aspartate Aminotransferase 32 IU/L (14-36); Bilirubin Total 0.9 mg/dL (0.2-1.3); Blood Urea Nitrogen 15 mg/dL (7-17); Calcium 9.1 mg/dL (8.4-10.2); Carbon Dioxide 25 mmol/L (22-32); Chloride 108 mmol/L (98-107); Estimated Glomerular Filt Rate > 60.0 mL/min (>60); Globulin 2.7 g/dL (1.7-4.1); Glucose 109 mg/dL (80-110); HEMOLYSIS 15 (0-50); Potassium 4.1 mmol/L (3.4-5.1); Sodium 141 mmol/L (137-145); Total Protein 6.3 g/dL (6.3-8.2)
--- NOTE | 2021-04-07 07:39 | PM.PN.1 ---
Subjective Subjective Date Patient Seen: 04/07/21 Interval history: She is seen today to follow-up her syncope. Her hemoglobin has dropped to 10.6. The CMP is normal. She has had no further spells and telemetry has been sinus rhythm. She tells me that she is moving to [place] on 04/15. Exam Vital Signs (past 8 hours): - 04/07/21 01:00 04/07/21 04:44 Temperature 97.6 F 96.7 F L Pulse Rate 58 L 60 Respiratory Rate 14 12 Blood Pressure 100/60 112/71 Pulse Oximetry 99 100 Oxygen Delivery Method Room Air Oxygen Flow Rate 0 Narrative Exam Narrative: She is alert and oriented x3. No apparent distress. Heart is regular rate rhythm without murmur Lungs are clear to auscultation bilaterally Extremities have no ankle edema Objective Labs Result Diagrams: 04/07/21 05:40 04/07/21 05:40 Labs: Laboratory Results - last 24 hr 04/06/21 04/06/21 04/06/21 09:44 09:44 10:15 WBC 4.5 RBC 4.18 Hgb 10.2 L Hct 32.0 L MCV 76.6 L MCH 24.3 L MCHC 31.8 RDW 16.3 H Plt Count 209 Neut % (Auto) 55.1 Lymph % (Auto) 30.2 Cross % (Auto) 9.4 Eos % (Auto) 3.9 Baso % (Auto) 1.4 Neut # (Auto) 2500 Lymph # (Auto) 1400 [place] # (Auto) 400 Eos # (Auto) 200 Baso # (Auto) 100 D-Dimer 258 H Sodium 140 Potassium 3.5 Chloride 111 H Carbon Dioxide 22 BUN 14 Creatinine 0.73 Estimated GFR > 60.0 BUN/Creatinine Ratio 19.2 Glucose 119 H Calcium 8.5 Magnesium 1.9 Total Bilirubin 0.8 AST 33 ALT 18 Alkaline Phosphatase 91 Total Creatine Kinase 59 CK-MB (CK-2) TNP CK-MB (CK-2) Rel Index TNP Troponin I < 0.012 NT-Pro-B Natriuret Pep 194 H Total Protein 6.3 Albumin 3.4 L Globulin 2.9 Albumin/Globulin Ratio 1.2 SARS-CoV-2 (PCR) 04/06/21 04/07/21 04/07/21 10:20 05:40 05:40 WBC 5.4 RBC 4.35 Hgb 10.6 L Hct 33.2 L MCV 76.4 L MCH 24.3 L MCHC 31.9 RDW 16.7 H Plt Count 231 Neut % (Auto) 50.7 Lymph % (Auto) 34.4 [place] % (Auto) 9.5 Eos % (Auto) 4.2 H Baso % (Auto) 1.2 Neut # (Auto) 2700 Lymph # (Auto) 1800 [place] # (Auto) 500 Eos # (Auto) 200 Baso # (Auto) 100 D-Dimer Sodium 141 Potassium 4.1 Chloride 108 H Carbon Dioxide 25 BUN 15 Creatinine 0.79 Estimated GFR > 60.0 BUN/Creatinine Ratio 19.0 Glucose 109 Calcium 9.1 Magnesium Total Bilirubin 0.9 AST 32 ALT 17 Alkaline Phosphatase 88 Total Creatine Kinase CK-MB (CK-2) CK-MB (CK-2) Rel Index Troponin I NT-Pro-B Natriuret Pep Total Protein 6.3 Albumin 3.6 Globulin 2.7 Albumin/Globulin Ratio 1.3 SARS-CoV-2 (PCR) Negative [facility] Medical History (Updated 04/06/21 @ 16:20 by Merlene Young MD) Diet-controlled diabetes mellitus H/O fracture of ankle Hyperlipidemia Hypertension Low back pain PTSD (post-traumatic stress disorder) Recurrent syncope Surgical History (Updated 04/06/21 @ 14:05 by Juliano Latif MD) H/O carpal tunnel repair H/O cornea transplant H/O gastric bypass H/O: hysterectomy History of ankle surgery Family History (Updated 04/06/21 @ 14:06 by Juliano Latif MD) Brother FH: heart attack Brother FH: heart attack Father FH: heart attack Mother FH: heart attack Syncope and collapse Pacemaker Dementia Brother FH: heart attack Daughter FH: heart attack Grandfather FH: heart attack Social History household members: children Smoking Status: Never smoker alcohol intake: never Assessment & Plan Assessment & Plan narrative: This is a 66-year-old female with recurrent syncopal symptoms who is admitted for telemetry observation and stabilization. She has a history of hyperlipidemia, hypertension, peripheral neuropathy, gastric bypass surgery and GERD. Syncope, present on admission. Active. -brain CT, EKG, telemetry and laboratory monitoring without any clear etiology -strong family history of coronary disease (4 brothers, father and mother) and also of syncope requiring pacemaker placement (mother) -negative syncope workup from 2017 (including stress echo) -hemoglobin 10.6, stable compared to October but much lower than in 2018. -per discussion with Cardiology will monitor for 48 hours inpatient and if no episodes or etiology are discovered then will recommend event monitor placement as an outpatient. -she hopes to accomplish all this before she moves to [place] on 04/15. Microcytic anemia, present on admission. Active. -hemoglobin of 10.6 today with MCV of 76. Previous hemoglobin of 13.8 in 2018 and then 10.4 on 11/08. -check iron level, Hemoccult stools -likely to need GI workup as an outpatient Hypertension, present on admission. Active. -continue amlodipine and losartan Hyperlipidemia, present on admission. Chronic. -continue atorvastatin Peripheral neuropathy, present on admission. Active. -continue gabapentin GERD, present on admission. Chronic. -continue Nexium
[2021-04-07] MEDS: LORATADINE 10 MG TABLET PO (08:50)
[2021-04-07] MEDS: GABAPENTIN 300 MG CAPSULE PO ×2 (08:50→20:30)
[2021-04-07] MEDS: AMLODIPINE 5 MG TABLET PO (08:50)
[2021-04-07] MEDS: LOSARTAN 50 MG TABLET PO ×2 (08:51→20:30)
--- NOTE | 2021-04-07 11:11 | CM.DANOTE ---
DCP: Case received, EMR reviewed and met with patient. Introduced self and role. Was able to obtain information from patient regarding her baseline activity and health information, as well as her current living situation prior to hospitalization. DCP assessment completed with information currently available. Patient is a 66 year old female who admitted yesterday afternoon to the care of the hospitalist team. PCP; Dr. Johnson/[facility]. Payer: confirmed: [employer]. Patient came to the hospital via ambulance secondary to having a syncopal episode. Patient howell shad history of these episodes before, last year, this resulted in an ankle fracture. When the medics arrived in patient's home, her systolic BP was 86. She was also having some bradycardia, at 58. Patient has also been under the care of a ingot header. She is here for a cardiac work up. Met with patient in her room. She was sitting up in her bed, alert and oriented, pleasant. Confirmed with patient that she resides in [place], and is living with her son, Shahid. She also has a life partner (boyfriend), named Moise Garica, who also lives in [place]. Patient indicated that she has been having these symptoms for a while, and one time she stopped breathing. She also indicated that a pacemaker is being considered. Most of her family members, brothers and father have had cardiac problems. She indicated that her father from a heart attack before he was 40. Patient is independent, but not driving since this symptoms continue. She stated, 'I can't imagine me having these symptoms when I am behind the wheel of a car, especially if my grand children are in the car. Patient indicated that she is preparing to move to [place] in a couple of weeks, and her car has already been sent there. According to rounds this morning, hospitalist indicated that she may need ziopatch/holtor monitor placed by her provider. P: DCP to continue to follow and will be available for any resources needed. Patient should be able to go home when she is medically stable. Re Pressley RN/Electronic System Engineer
--- NOTE | 2021-04-07 13:28 | PC.NURSE ---
Patient VSS this shift, Tele: sinus александр and normal sinus readings. Patient has been up to the bathroom for a shower and ambulating in the hallways without any symptoms or episodes of syncope.
[2021-04-07 16:01] LABS: HEMOLYSIS < 15 (0-50); Iron 22 ug/dL (37-170)
[2021-04-07 16:12] LABS: Percent Iron Saturation 6 % (15-50); Total Iron Binding Capacity 349 ug/dL (265-497); Transferrin 296 mg/dL (206-381)
[2021-04-07] MEDS: ATORVASTATIN 20 MG TABLET 40 MG PO (20:29)
[2021-04-07] MEDS: SODIUM CHLORIDE 0.9% FLUSH 10 ML IV (20:30)
[2021-04-07] MEDS: CYCLOBENZAPRINE 10 MG TABLET PO (20:30)
[2021-04-08 05:22] LABS: Add Manual Diff / Slide Review NO; Basophils Absolute Auto 100 /uL (0-100); Basophils Percent Auto 1.3 % (0-2); Eosinophils Absolute Auto 300 /uL (0-450); Eosinophils Percent Auto 5.2 % (2-4); Hematocrit 33.6 % (36-46); Hemoglobin 10.7 g/dL (12.0-16.0); Lymphocytes Absolute Auto 1900 /uL (1100-4500); Lymphocytes Percent Auto 34.8 % (25-40); Mean Corpuscular HGB Conc 31.8 % (30-36); Mean Corpuscular Hemoglobin 24.3 PG (26-34); Mean Corpuscular Volume 76.6 fL (80-100); Monocytes Absolute Auto 500 /uL (0-900); Monocytes Percent Auto 10.1 % (3-14); Neutrophils Absolute Auto 2600 /uL (1500-7000); Neutrophils Percent Auto 48.6 % (50-75); Platelet Count 232 X10^3/uL (150-400); Red Blood Cell Count 4.38 X10^6/uL (4.0-5.2); Red Cell Distribution Width 16.6 % (11.6-14.8); White Blood Cell Count 5.4 X10^3/uL (4.5-11.0)
[2021-04-08 05:36] VITALS: BP 148/76; PULSE 61; RESP 16; TEMP 36.1; O2SAT 100
[2021-04-08] MEDS: PANTOPRAZOLE DR 40 MG TABLET PO (06:15)
[2021-04-08 09:00] VITALS: BP 136/98; PULSE 68; RESP 16; TEMP 36.4; O2SAT 99
[2021-04-08 09:17] VITALS: BP 136/98
[2021-04-08] MEDS: LORATADINE 10 MG TABLET PO (09:17)
[2021-04-08] MEDS: LOSARTAN 50 MG TABLET PO (09:17)
[2021-04-08] MEDS: GABAPENTIN 300 MG CAPSULE PO (09:17)
[2021-04-08] MEDS: FERROUS SULFATE 325 MG TABLET PO (09:17)
[2021-04-08] MEDS: SODIUM CHLORIDE 0.9% FLUSH 10 ML IV (09:17)
[2021-04-08 12:00] VITALS: BP 159/92; PULSE 62; RESP 16; TEMP 36.4; O2SAT 99
--- NOTE | 2021-04-08 12:43 | P.DS_ITS ---
History of Present Illness History of Present Illness Chief complaint: Syncopal Narrative: This is a 66-year-old female with recurrent syncopal symptoms who is admitted for telemetry observation and stabilization. She has a history of hyperlipidemia, hypertension, peripheral neuropathy, gastric bypass surgery and GERD. She has a very strong family history of coronary artery disease in her mother, her father who at age 39, all 4 of her brothers, 2 of whom have already of MIs. She also has a family history in her mother of recurrent syncope, finally stabilized with pacemaker placement at a similar age. She has had episodes of feeling like passing out and actually passing out going back to 2017. On 1 of these episodes she fell and actually fractured her left ankle requiring surgery. She had a negative syncope evaluation with Dr. Guzman back in 2017. This week she has had 2 episodes already, she was seen a few days ago at [facility] Emergency Department without any etiology found and then again today when she was driving to [employer] to go shopping she suddenly felt very tired. She pulled into the parking lot and was barely able to stand up. She eventually got in 1 of the scooter carts, called her son and then was picked up and brought to the hospital by her son or the paramedics. She did not pass out. She felt very nauseated but didn't have any Chest Pain or SOB. She describes that her blood pressure was 100/58 when they arrived, which is considerably lower than she normally is. She says she was told that her heart rate was slow but she does not recall the numbers. Her evaluation here so far has been negative including telemetry monitoring, EKG and brain CT. She was discussed with Cardiology who recommended a 24-48 hour period of observation in the hospital setting and if nothing is found to explain her symptoms then an event monitor placement as an outpatient. Discharge Providers Provider Date of admission: 04/06/21 13:03 Discharge Date: 04/08/21 Primary care physician: Meghan Iqbal MD Discharge provider: Kylie Hou MD Summary Hospital Course Discharge Diagnosis: 1. Recurrent syncope, suspect Feliciano cardia possible intermittent heart block, patient to have event monitor placed at discharge 2. Hypertension 3. Hyperlipidemia 4. Low back pain 5. Diet-controlled diabetes 6. PTSD Hospital Course: Patient was admitted to the hospital for recurrent syncope. She was paced on telemetry and found to have a sinus rhythm with first-degree AV block, heart rate as low as 50s. Patient was found to be in sinus bradycardia but heart rate no lower than 50s. She had no further syncopal episodes. Patient had no chest pain. She was asymptomatic. Given her multiple episodes of near syncope, syncopal events the patient will be scheduled for an outpatient event monitor. She is agreeable to this. Patient is without symptoms, no chest pain, no shortness of breath, she is deemed appropriate for discharge and will follow-up with the cardiac clinic for an event monitor. During the patient's hospital stay orthostatic vital signs were obtained. Patient had no evidence of orthostasis. Status at Discharge Cognitive/behavioral status at discharge: oriented Functional status at discharge: independent ambulation Overall status at discharge: patient is back to baseline Time Spent with Patient Time spent: Less than 30 minutes Exam Vital Signs (past 8 hours): - 04/08/21 05:36 04/08/21 09:00 04/08/21 09:17 Temperature 97.0 F L 97.5 F L Pulse Rate 61 68 Respiratory Rate 16 16 Blood Pressure 148/76 H 136/98 H 136/98 H Pulse Oximetry 100 99 Oxygen Delivery Method Room Air Oxygen Flow Rate 0 Narrative Exam Narrative: Pleasant female in no acute distress Lungs: Clear to auscultation Cardiac exam: Regular rate and rhythm, normal S1-S2, 2/6 systolic ejection murmur Abdomen: Soft nontender nondistended Extremities: No edema Objective Labs Result Diagrams: 04/08/21 05:00 04/07/21 05:40 Labs: Laboratory Results - last 24 hr 04/07/21 04/08/21 15:44 05:00 WBC 5.4 RBC 4.38 Hgb 10.7 L Hct 33.6 L MCV 76.6 L MCH 24.3 L MCHC 31.8 RDW 16.6 H Plt Count 232 Neut % (Auto) 48.6 L Lymph % (Auto) 34.8 Barbour % (Auto) 10.1 Eos % (Auto) 5.2 H Baso % (Auto) 1.3 Neut # (Auto) 2600 Lymph # (Auto) 1900 [place] # (Auto) 500 Eos # (Auto) 300 Baso # (Auto) 100 Iron 22 L TIBC 349 % Saturation 6 L Transferrin 296 [facility] Medical History (Updated 04/06/21 @ 16:20 by Merlene Young MD) Diet-controlled diabetes mellitus H/O fracture of ankle Hyperlipidemia Hypertension Low back pain PTSD (post-traumatic stress disorder) Recurrent syncope Surgical History (Updated 04/06/21 @ 14:05 by Juliano Latif MD) H/O carpal tunnel repair H/O cornea transplant H/O gastric bypass H/O: hysterectomy History of ankle surgery Family History (Updated 04/06/21 @ 14:06 by Juliano Latif MD) Brother FH: heart attack Brother FH: heart attack Father FH: heart attack Mother FH: heart attack Syncope and collapse Pacemaker Dementia Brother FH: heart attack Daughter FH: heart attack Grandfather FH: heart attack Social History household members: children Smoking Status: Never smoker alcohol intake: never Discharge Assessment & Plan Assessment and Plan Assessment: 1. Recurrent syncope 2. Hypertension 3. Hyperlipidemia 4. Iron deficient anemia 5. Diet-controlled diabetes Plan of Treatment: Discharge home Outpatient event monitor for further evaluation Discharge Plan Discharge Plan Patient Disposition: Home Provider Discharge Comment: OUtpatient event monitor to r/o feliciano or tachycardia Discharge orders & Medications Prescriptions: New ferrous sulfate 325 mg (65 mg iron) Tablet 325 mg PO BIDWM Qty: 30 RF: 0 Continued doxycycline hyclate 100 MG capsule 100 mg PO QDAY Qty: 0 RF: 0 cyanocobalamin (vitamin B-12) Vitamin B-12 solution 1,000 mcg IM QWEEKWE Qty: 0 RF: 0 losartan 50 MG tablet 50 mg PO BID Qty: 0 RF: 0 cyclobenzaprine 10 MG tablet 10 mg PO HS Qty: 0 RF: 0 atorvastatin [Lipitor] 40 MG tablet 40 mg PO QPM Qty: 0 RF: 0 amlodipine [Norvasc] 5 MG tablet 5 mg PO QDAY Qty: 0 RF: 0 gabapentin [Neurontin] 300 MG capsule 300 mg PO BID Qty: 0 RF: 0 rabeprazole 20 mg tablet,delayed release (DR/EC) 20 mg PO DAILY RF: 0 ondansetron 4 mg tablet,disintegrating 4 mg PO TID PRN (Reason: Nausea) RF: 0 loratadine 10 mg tablet 10 mg PO DAILY RF: 0 Centrum Silver Ultra Women's Tablet 1 tab PO DAILY RF: 0 Follow up/Referrals: Meghan Iqbal MD [Primary Care Provider] - Discharge Health Status Multidrug resistant organism: No MDRO Diet/Activity/Treatments Diet: Low-fat and Low-sodium Other treatments: Needs outpatient event monitor Discharge Data Primary Care Provider: Meghan Iqbal Attending Provider: Juliano Latif
--- NOTE | 2021-04-08 13:42 | CM.DPNOTE ---
Dr. Hou requested an appt. for today for event monitor from [facility]. Faxed clinicals & [facility] Arrhythmia form to [facility] [phone]. Spoke to Nereyda, [phone] from the clinic and they only provide Event Monitor at office. Dr. Hou signed the form and I also faxed that to Nereyda's attn. Fax confirmation received. Nereyda said she will make the appt. later on for today. Yoli Plasencia CM Asst.
--- NOTE | 2021-04-08 14:39 | PC.NURSE ---
Event monitor appointment set up for 1500 today in [facility], as arranged by discharge planning. Patient's son is picking her up here and taking her directly to appointment. Patient agrees she will be staying in the area with her family (delaying move) until all this is sorted out and deemed safe for travel. Patient has been without event during stay, feeling well and up without complaint. IV dc'd intact. Patient escorted out via wheelchair with all her belongings. Patient has follow up appointment with her PCP Dr. Hi scheduled for . Instructed to seek emergency care if symptoms return or worsen.
== END 2021-04-08 14:50 | disposition home or self-care (01) ==
LOC: ED 11:46 → AC 13:04
PROVIDERS: Nurse Practitioner Family; Admitting Provider Family Medicine; Emergency Provider Emergency Medicine; Referring Provider Emergency Medicine; Visit Provider Family Medicine
DX: R55 Syncope and collapse (principal); I10 Essential (primary) hypertension; E78.5 Hyperlipidemia, unspecified; E11.9 Type 2 diabetes mellitus without complications; D50.9 Iron deficiency anemia, unspecified; K21.9 Gastro-esophageal reflux disease without esophagitis; F43.10 Post-traumatic stress disorder, unspecified; M54.5 Low back pain; Z20.822 Contact with and (suspected) exposure to COVID-19
CPT/HCPCS: 36415; 70450; 71045; 80053; 81003; 82550; 83540; 83550; 83735; 83880; 84484; 85025; 85379; 87635; 93005; 94760; 96360; 96361; 99284; C9803; G0378